=== PATIENT | male | born 1950 | race Caucasian/White ===

== ENCOUNTER → 2023-10-10 | Emergency (ER) | payer MEDICARE ==
[~2023-10-10] VITALS: Ht 170.2 cm; Wt 65.8 kg
[2023-10-10 21:24] VITALS: TEMP 98.3
[2023-10-10 21:38] VITALS: BP 141/70; O2SAT 96
== END | disposition left against medical advice (07) ==
LOC: ER 21:03
DX: K62.5 Hemorrhage of anus and rectum (principal); Z53.21 Procedure and treatment not carried out due to patient leaving prior to being seen by health care provider
CPT/HCPCS: 71045-TC